=== PATIENT | male | born 1975 | race Caucasian/White ===

== ENCOUNTER 2019-04-05 08:32 | Emergency (ER) | payer MEDICAID ==
[~2019-04-05] VITALS: Ht 167.6 cm; Wt 71.6 kg
[~2019-04-05 08:32] MED LIST: ACET1TAB40 PO; IBUP-1542 PO
[2019-04-05 08:34] VITALS: Ht 167.6 cm; Wt 71.6 kg
[2019-04-05] MEDS ORDERED: LORA-186 PO (10:42)
[2019-04-05] MEDS ORDERED: DOCU-144 PO (10:43)
--- NOTE | 2019-04-05 10:46 | ERD ---
ER Documentation Chief Complaint Chief Complaint painful urination x2 weeks;problems with defecating x 6 months;L flank pain HPI 34-year-old male presents the emergency department complaining of constipation for the last 2 weeks. He states for the last 6 months he has been able to pass stool, but that has been "too weak to pass every bit of it." She reports no abdominal pain or vomiting. He reports no focal weakness or numbness. Over the last 2 weeks he had questionable dysuria no hematuria. He also is concerned about some left testicle pain that he is having which was not acute in onset but also occurring over the last 2 weeks or so. He reports no trauma. ROS All systems reviewed and are negative except as per history of present illness. Medications Home Meds Active Scripts Docusate Sodium* (Colace*) 100 Mg Capsule, 100 MG PO TID for constipation, #30 CAP Prov:HELEN LOUISE 04/05/19 Reported Medications Loratadine* (Claritin*) 10 Mg Tablet, 10 MG PO DAILY, TAB 04/05/19 Discontinued Scripts Acetaminophen with Codeine (Acetaminophen-Cod #3 Tablet) 1 Each Tablet, 1 TAB PO Q6H PRN for PAIN, #12 TAB Prov:LESLIE CHEATHAM MD 08/23/16 Ibuprofen* (Motrin*) 600 Mg Tab, 600 MG PO Q6, #20 TAB Prov:LESLIE CHEATHAM MD 08/23/16 Allergies Allergies: Coded Allergies: No Known Allergy (Unverified , 04/05/19) PMhx/Soc Medical and Surgical Hx: pt denies Medical Hx, pt denies Surgical Hx History of Surgery: No Anesthesia Reaction: No Hx Neurological Disorder: No Hx Respiratory Disorders: No Hx Cardiac Disorders: No Hx Psychiatric Problems: No Hx Miscellaneous Medical Probl: No Hx Alcohol Use: No Hx Substance Use: No Hx Tobacco Use: No Smoking Status: Never smoker FmHx Noncontributory for chief complaint Physical Exam Vitals Vital Signs Date Temp Pulse Resp B/P (MAP) Pulse Ox O2 O2 Flow FiO2 Time Delivery Rate 04/05/19 89 23 125/88 98 10:30 (100) 04/05/19 98.9 77 14 123/92 98 Room Air 08:45 (102) 04/05/19 98.1 80 18 140/84 97 08:34 (102) Physical Exam GENERAL: The patient is well developed and appropriate for usual state of health in no apparent distress HEENT: Pupils equal, round, and reactive to light. EOMI. There is no scleral icterus. NECK: C-spine is soft and supple, there is no meningismus. There is no cervical lymphadenopathy. LUNGS: Clear to auscultation bilaterally. There are no rales, wheezes or rhonchi. HEART: Regular rate and rhythm, no murmurs, clicks, rubs or gallops. ABDOMEN: Soft, non-tender, non-distended. There are bowel sounds in all four quadrants. No rebound or guarding. : Normal external male examination. No significant tenderness or masses noted in the testicles. Normal testicular lie. Normal cremasteric reflex. EXTREMITIES: There is no peripheral cyanosis or edema. No focal swelling or erythema. NEURO: The patient moves all four extremities with 5/5 strength. Cranial nerves II - XII are intact. Normal gait. Alert and oriented SKIN: There is no apparent rash or petechiae. HEME/LYMPHATIC: There is no evidence of excessive bruising or lymphedema. PSYCHIATRIC: The patient does not appear anxious or depressed. Result Diagram: 04/05/19 0909 04/05/19 0909 Results 24 hrs Laboratory Tests Test 04/05/19 09:09 White Blood Count 6.5 10^3/ul Red Blood Count 4.91 10^6/ul Hemoglobin 14.7 g/dl Hematocrit 43.0 % Mean Corpuscular Volume 87.6 fl Mean Corpuscular Hemoglobin 29.9 pg Mean Corpuscular Hemoglobin Concent 34.2 g/dl Red Cell Distribution Width 12.7 % Platelet Count 267 10^3/UL Mean Platelet Volume 9.7 fl Immature Granulocytes % 0.300 % Neutrophils % 39.3 % Lymphocytes % 44.8 % Monocytes % 8.8 % Eosinophils % 6.0 % Basophils % 0.8 % Nucleated Red Blood Cells % 0.0 /100WBC Immature Granulocytes # 0.020 10^3/ul Neutrophils # 2.5 10^3/ul Lymphocytes # 2.9 10^3/ul Monocytes # 0.6 10^3/ul Eosinophils # 0.4 10^3/ul Basophils # 0.1 10^3/ul Nucleated Red Blood Cells # 0.0 10^3/ul Urine Color YELLOW Urine Clarity CLEAR Urine pH 6.0 Urine Specific [place] 1.026 Urine Ketones NEGATIVE mg/dL Urine Nitrite NEGATIVE mg/dL Urine Bilirubin NEGATIVE mg/dL Urine Urobilinogen NEGATIVE mg/dL Urine Leukocyte Esterase NEGATIVE [place]/ul Urine Hemoglobin NEGATIVE mg/dL Urine Glucose NEGATIVE mg/dL Urine Total Protein NEGATIVE mg/dl Sodium Level 143 mmol/L Potassium Level 4.2 mmol/L Chloride Level 105 mmol/L Carbon Dioxide Level 28 mmol/L Anion Gap 10 Blood Urea Nitrogen 18 mg/dl Creatinine 0.91 mg/dl Est Glomerular Filtrat Rate mL/min > 60 mL/min Glucose Level 106 mg/dl Calcium Level 9.8 mg/dl Total Bilirubin 0.7 mg/dl Direct Bilirubin 0.00 mg/dl Indirect Bilirubin 0.7 mg/dl Aspartate Amino Transf (AST/SGOT) 35 IU/L Alanine Aminotransferase (ALT/SGPT) 52 IU/L Alkaline Phosphatase 71 IU/L Total Protein 7.9 g/dl Albumin 4.6 g/dl Globulin 3.30 g/dl Albumin/Globulin Ratio 1.39 Lipase 67 U/L Procedures/MDM Patient was taken to a room, seen and evaluated. Comfort measures were init iated. Diagnostic tests were ordered and reviewed. RADIOLOGY: Reviewed with the radiologist REEVALUATION: Diagnostic tests were appreciated. Patient remained nontoxic. So examinations of the abdomen remained benign. MED[employer] DECISION MAKIN-year-old male presents with nonspecific symptoms related to what appears to be constipation. His examination shows no evidence of obstruction, no evidence of appendicitis or other high-risk intra-abdominal concerns. In regards to his testicular complaints, his ultrasound is normal and he has no concerns for testicular torsion or obvious severe mass. Patient appears to be clinically nontoxic and appropriate for outpatient supportive management. Departure Diagnosis: Primary Impression: Constipation Condition: Stable Patient Instructions: Constipation (Adult) Additional Instructions: See your doctor for follow-up as discussed. Take a copy of your test results, if appropriate, to this follow-up visit. See your doctor or return here if your symptoms do not improve as expected. At any time, please return to the emergency department for any change or worsening in her symptoms. HELEN LOUISE April 05, 2019 10:46
[2019-04-05 10:54] VITALS: BP 125/88; PULSE 73; RESP 13
== END 2019-04-05 10:59 | disposition home or self-care (01) ==
LOC: E/R 08:32
DX: K59.00 Constipation, unspecified (principal)
CPT/HCPCS: 36415; 74018; 76870; 80053; 81003; 83690; 85025; Z7502